=== PATIENT | male | born 1995 | race Caucasian/White ===

== ENCOUNTER 2016-06-20 21:00 | Emergency (ER) | payer OTHER ==
[2016-06-20 21:18] VITALS: RESP 18
--- NOTE | 2016-06-20 22:02 | EDPHY ---
H & P Time Seen by Provider: 06/20/16 21:47 HPI/ROS: CHIEF COMPLAINT: Head congestion HISTORY OF PRESENT ILLNESS: Patient has been sick for the last 3 days. He describes head congestion, lymphadenopathy under the right jaw, intermittent tingling in his tongue, pain in his sinuses, better with ibuprofen and better yesterday but recurrent again today. Mild sore throat. REVIEW OF SYSTEMS: No difficulty breathing or swelling, no high fever, no headache. No change in his voice. No ear symptoms. Says his tongue feels tingly but does have preserved sensation. PAST MEDICAL HISTORY: Negative except for tonsillectomy Social history: no IV drugs General Appearance: Alert and conversant, cooperative. Patient does not have facial swelling or redness. Extraocular motion intact and no proptosis. Oropharynx shows slight pharyngeal erythema but no trismus. No intraoral lesions. No drooling or stridor. Tympanic membranes and external canals are normal bilaterally. Neck supple with good range of motion and no meningeal signs. For a slight right submandibular lymphadenopathy but no swelling over the parotid. No maxillary or frontal sinus tenderness. Chest clear to auscultation bilaterally and cardiac shows regular rate and rhythm without murmur. Tongue protrudes both the right and left. Palate elevates symmetrically. Face is symmetric externally. Emergency Department course/MDM: Patient likely has viral head cold without evidence of acute severe bacterial infection. Negative strep test, symptomatic treatment. He does describe some tingling in his tongue but on physical exam he has sensation preserved in all distributions of the time and he does not have evidence of angioedema. Symptomatic treatment, ENT referral if he still has a tingling tongue in the next 24 hours. Smoking Status: Never smoked Constitutional: Initial Vital Signs Temperature (C) 37.6 C 06/20/16 21:12 Heart Rate 88 06/20/16 21:12 Respiratory Rate 18 06/20/16 21:12 Blood Pressure 127/91 H 06/20/16 21:12 O2 Sat (%) 95 06/20/16 21:12 O2 Delivery Mode Room Air Allergies/Adverse Reactions: No Known Allergies Allergy (Unverified 06/20/16 21:18) Home Medications: Medication Instructions Recorded NK [No Known Home Meds] 06/20/16 MDM/Departure - Depart Disposition: Home, Routine, Self-Care Clinical Impression: Head cold Condition: Good Instructions: Viral Syndrome (ED), Cold Symptoms (ED) Additional Instructions: Strep test negative. Continue as you have been doing with oral fluids, 600 mg oral ibuprofen every 8 hours for the next 3 days as needed for discomfort. Referrals: VY BAIRD MD [Other] - As per Instructions Seven Jean MD [Medical Doctor] - 1 day, if not improved (Followup with this ENT practice if your tongue symptoms are still present tomorrow.)
[2016-06-20 22:24] VITALS: BP 109/97; PULSE 71; TEMP 98.4; O2SAT 96
== END 2016-06-20 22:22 | disposition home or self-care (01) ==
DX: J00 Acute nasopharyngitis [common cold] (principal)